=== PATIENT | female | born 1965 | race American Indian/Alaskan Native ===

== ENCOUNTER 2017-01-16 16:45 | Emergency (ER) | payer OTHER ==
--- NOTE | 2017-01-16 18:33 | XRay Report ---
FINAL REPORT PROCEDURE: XR ANKLE 2V RT TECHNIQUE: RIGHT ankle radiographs, AP and lateral views. HISTORY: RT ANKLE PAIN/DOGS KNOCKED PATIENT DOWN STEPS, PATIENT STATES COMPARISON: No prior studies are available for comparison. FINDINGS: Fracture (s) and/or Dislocation(s): None. Alignment: Normal. Joint space(s): Normal. Foreign bodies: Normal. Calcaneal spurring: Normal. Soft tissues: Mild degree soft tissue swelling is identified over the lateral malleolus.. Bone mineralization: Mild degree osteophyte formation is noted involving the talonavicular joint.. IMPRESSION: No acute fracture Osteoarthritis. Soft tissue swelling..
--- NOTE | 2017-01-16 18:34 | XRay Report ---
FINAL REPORT PROCEDURE: XR KNEE 1-2V LT TECHNIQUE: LEFT knee radiographs, AP and lateral views. CPT 33921 HISTORY: LT KNEE PAIN/ PATIENT STATES DOGS KNOCK HER DOWN STEPS COMPARISON: No prior studies are available for comparison. FINDINGS: Fracture (s) and/or Dislocation(s): None . Alignment: Normal . Joint space(s): Mild degree narrowing of the joint space is noted involving the medial tibiofemoral compartment. Mild degree joint effusion is identified.. Soft tissues: Normal . Bone mineralization: Mild degree osteophyte formation is noted involving tibial femoral compartment and moderate degree osteophyte formation is noted involving patellofemoral joint.. Foreign bodies: None . IMPRESSION: No acute fracture Moderate degree osteoarthritis with mild degree joint effusion.
--- NOTE | 2017-01-16 22:45 | Emergency Department Report ---
ED Lower Extremity HPI - General Chief Complaint: Extremity Injury, Lower Stated Complaint: LEFT KNEE/RIGHT ANKLE PAIN Time Seen by Provider: 01/16/17 21:53 Source: patient Mode of arrival: Ambulatory Limitations: No Limitations - History of Present Illness Initial Comments: This is a 51-year-old female nontoxic, well nourished in appearance, no acute signs of distress presents to the ED complaining of left knee pain and right ankle pain 1 day. Patient stated her dogs in her left knee which made her twist her knee and then patient was working on a stairs while that incident happened was at her right ankle. Patient denies any direct blows to the region. Denies numbness or tingling. Patient denies any fever, chills, stiff neck, headache, shortness of breath, chest pain, abdominal pain, nausea or vomiting. He describes pain as aching with level of 7 out of 10. Patient denies any drug allergies. Past medical history includes hypertension. MD Complaint: knee injury, ankle injury -: This evening Injury: Knee: Left, Ankle: Right Type of Injury: inversion Place: home Severity: mild Severity scale (0 -10): 8 Improves With: nothing Worsens With: nothing Associated Symptoms: able to partially bear weight, ambulatory. denies: snap/ pop sensation, swelling, numbness, tingling, unable to bear weight - Related Data Previous Rx's Medication Instructions Recorded Last Taken Type Ibuprofen [Motrin 600 MG tab] 600 mg PO Q8H PRN #30 tablet 01/16/17 Unknown Rx traMADol [Ultram] 50 mg PO Q6HR PRN #12 tablet 01/16/17 Unknown Rx Allergies Allergy/AdvReac Type Severity Reaction Status Date / Time No Known Allergies Allergy Unverified 10/29/13 08:07 ED Review of Systems ROS: Stated complaint: LEFT KNEE/RIGHT ANKLE PAIN Other details as noted in HPI Constitutional: denies: chills, fever Eyes: denies: eye pain, eye discharge, vision change ENT: denies: ear pain, throat pain Respiratory: denies: cough, shortness of breath, wheezing Cardiovascular: denies: chest pain, palpitations Endocrine: no symptoms reported Gastrointestinal: denies: abdominal pain, nausea, diarrhea Genitourinary: denies: urgency, dysuria, discharge Musculoskeletal: denies: back pain, joint swelling, arthralgia Skin: denies: rash, lesions Neurological: denies: headache, weakness, paresthesias Psychiatric: denies: anxiety, depression Hematological/Lymphatic: denies: easy bleeding, easy bruising ED Past Medical Hx - Past Medical History Hx Hypertension: Yes (HCTZ) - Surgical History Additional Surgical History: BACK - Social History Smoking Status: Never Smoker Substance Use Type: Alcohol - Medications Home Medications: Home Medications Medication Instructions Recorded Confirmed Last Taken Type Ibuprofen [Motrin 600 MG tab] 600 mg PO Q8H PRN #30 tablet 01/16/17 Unknown Rx traMADol [Ultram] 50 mg PO Q6HR PRN #12 tablet 01/16/17 Unknown Rx ED Physical Exam - General Limitations: No Limitations General appearance: alert, in no apparent distress - Head Head exam: Present: atraumatic, normocephalic, normal inspection - Eye Eye exam: Present: normal appearance, PERRL, EOMI. Absent: scleral icterus, conjunctival injection, nystagmus, periorbital swelling, periorbital tenderness Pupils: Present: normal accommodation - ENT ENT exam: Present: normal exam, normal orophraynx, mucous membranes moist, TM's normal bilaterally, normal external ear exam - Neck Neck exam: Present: normal inspection, full ROM. Absent: tenderness, meningismus, lymphadenopathy, thyromegaly - Respiratory Respiratory exam: Present: normal lung sounds bilaterally. Absent: respiratory distress, wheezes, rales, rhonchi, stridor, chest wall tenderness, accessory muscle use, decreased breath sounds, prolonged expiratory - Cardiovascular Cardiovascular Exam: Present: regular rate, normal rhythm, normal heart sounds. Absent: bradycardia, tachycardia, irregular rhythm, systolic murmur, diastolic murmur, rubs, gallop - GI/Abdominal GI/Abdominal exam: Present: soft, normal bowel sounds. Absent: distended, tenderness, guarding, rebound, rigid, diminished bowel sounds - Rectal Rectal exam: Present: deferred - Extremities Exam Extremities exam: Present: normal inspection, full ROM, normal capillary refill. Absent: tenderness, pedal edema, joint swelling, calf tenderness - Expanded Lower Extremity Exam Left Hip exam: Present: normal inspection, full ROM Upper Leg exam: Present: normal inspection, full ROM Knee exam: Present: normal inspection, full ROM, swelling, full knee extension. Absent: tenderness, abrasion, laceration, ecchymosis, deformity, crepidus, dislocation, erythema, effusion, pain w/ pronation/supination, posterior draw sign, pain/laxity with valgus, pain/laxity with varus Lower Leg exam: Present: normal inspection, full ROM. Absent: Jeromy's sign Ankle exam: Present: normal inspection, full ROM Foot/Toe exam: Present: normal inspection, full ROM Neuro vascular tendon exam: Present: no vascular compromise. Absent: pulse deficit, abnormal cap refill, motor deficit, sensory deficit, tendon deficit, extremity cold to touch, pallor, abnormal 2-point discrimination, decreased fine /light touch, foot drop, peroneal nerve deficit, significant pain with passive ROM of distal joint Gait: Positive: observed and normal Right Hip exam: Present: normal inspection, full ROM Upper Leg exam: Present: normal inspection, full ROM Knee exam: Present: normal inspection, full ROM Lower Leg exam: Present: normal inspection, full ROM. Absent: Jeromy's sign Ankle exam: Present: normal inspection, full ROM, swelling. Absent: tenderness , abrasion, laceration, ecchymosis, deformity, crepidus, dislocation, erythema, anterior draw sign Foot/Toe exam: Present: normal inspection, full ROM Neuro vascular tendon exam: Present: no vascular compromise. Absent: pulse deficit, abnormal cap refill, motor deficit, sensory deficit, tendon deficit, extremity cold to touch, pallor, abnormal 2-point discrimination, decreased fine /light touch, foot drop, peroneal nerve deficit, significant pain with passive ROM of distal joint Gait: Positive: observed and normal - Back Exam Back exam: Present: normal inspection, full ROM. Absent: tenderness, CVA tenderness (R), CVA tenderness (L), muscle spasm, paraspinal tenderness, vertebral tenderness, rash noted - Neurological Exam Neurological exam: Present: alert, oriented X3, CN II-XII intact, normal gait, reflexes normal - Psychiatric Psychiatric exam: Present: normal affect, normal mood - Skin Skin exam: Present: warm, dry, intact, normal color. Absent: rash ED Course Vital Signs 01/16/17 16:58 Temperature 98.1 F Pulse Rate 90 Respiratory 16 Rate Blood Pressure 137/91 O2 Sat by Pulse 96 Oximetry - Reevaluation(s) Reevaluation #1: 01/16/17 22:44 Patient is speaking in full sentences with no signs of distress noted. ED Lower Extremity MDM - Radiology Data Radiology results: report reviewed interpreted by me: Dictated by radiologist Normal examination of right knee and ankle with moderate degree of osteoarthritis with mild degree of joint effusion of the knee and also arthritis of the right ankle - Medical Decision Making Patient received a ankle stirrup and a knee immobilizer. Was instructed to follow up with Dr. Barfield in 3-5 days. Patient was instructed to Rice therapy. Patient received Ultram at discharge as well as ibuprofen for pain. She was instructed cannot operate any machinery while taking Ultram due to sedation. Critical care attestation.: If time is entered above; I have spent that time in minutes in the direct care of this critically ill patient, excluding procedure time. ED Disposition Clinical Impression: Knee strain Qualifiers: Encounter type: initial encounter Laterality: left Qualified Code(s): S86.912A - Strain of unspecified muscle(s) and tendon(s) at lower leg level, left leg, initial encounter Ankle sprain Qualifiers: Encounter type: initial encounter Involved ligament of ankle: unspecified ligament Laterality: right Qualified Code(s): S93.401A - Sprain of unspecified ligament of right ankle, initial encounter Disposition: TO HOME OR SELFCARE Is pt being admited?: No Does the pt Need Aspirin: No Condition: Stable Instructions: Knee Pain (ED), Knee Immobilizer (ED), Ankle Stirrup Splint (ED) , Ankle Sprain (ED), Tramadol (By mouth), Ibuprofen (By mouth) Additional Instructions: Follow-up with Dr. Barfield in 3-5 days or if symptoms worsen and continue return to emergency room as soon as possible possible. Prescriptions: Ibuprofen [Motrin 600 MG tab] 600 mg PO Q8H PRN #30 tablet PRN Reason: Pain traMADol [Ultram] 50 mg PO Q6HR PRN #12 tablet PRN Reason: Pain Referrals: PRIMARY CAREMD [Primary Care Provider] - 3-5 Days KARIME BARFIELD MD [Staff Physician] - 3-5 Days [facility] [Outside] - 3-[address] [facility] [Outside] - 3-5 Days Forms: Work/School Release Form(ED)
[2017-01-16 23:07] VITALS: BP 149/93
== END 2017-01-16 23:07 | disposition home or self-care (01) ==
LOC: ED 16:45
DX: S86.912A Strain of unspecified muscle(s) and tendon(s) at lower leg level, left leg, initial encounter (principal); S93.401A Sprain of unspecified ligament of right ankle, initial encounter; I10 Essential (primary) hypertension; X58.XXXA Exposure to other specified factors, initial encounter; Y93.9 Activity, unspecified; Y92.009 Unspecified place in unspecified non-institutional (private) residence as the place of occurrence of the external cause; Y99.9 Unspecified external cause status